=== PATIENT | male | born 1960 | race Caucasian/White ===

== ENCOUNTER → 2022-09-21 10:53 | Outpatient (CLI) | payer OTHER, SELFPAY ==
--- NOTE | 2022-09-21 10:55 | DI.CT.S_ITS ---
PROCEDURE: CT ANKLE RIGHT WITHOUT CON INDICATIONS: Fall from ladder, fracture in tibia, ankle TECHNIQUE: Noncontrast 1-1.5 mm axial sections acquired from above the tibiotalar joint to the bottom of the calcaneus, with coronal and sagittal reformats. COMPARISON: [facility] ([place]), CR, XR FOOT RT MIN 3V, 09/15/2022, 14:47. [facility]), CR, XR ANKLE RT MIN 3V, 09/15/2022, 14:59. [facility], RG, XR FOOT COMPLETE, 12/02/2016, 13:33. FINDINGS: Image quality: Excellent. Bones: There is a comminuted mildly displaced longitudinal fracture involving the anterolateral aspect of the distal tibia extending to the tibiotalar joint and distal tibiofibular syndesmosis. There is up to 8 mm anterolateral displacement of the anterior fracture fragment measures on axial images. There is minimal step-off at the distal tibial articular surface measuring up to 1 mm. Tibiotalar alignment appears normal. No osteochondral lesion is seen in the talar dome. No acute fibular fracture is identified. There is chronic dorsal subluxation of the navicular relative to the talar head with chronic osseous remodeling. Mild fragmentation of the lateral portion of the navicular is noted. Surrounding degenerative changes are seen in the talar head and the lateral cuneiform. A small ossification is seen between the 1st and 2nd metatarsal bases that may be the sequela of a remote prior injury versus secondary to congenital variation. Soft tissues: Soft tissue edema is seen surrounding the ankle. The articular cartilages, ligaments, and tendons are not well evaluated with standard CT. However, the Achilles tendon appears mildly thickened, consistent with tendinosis. No definite tendon entrapment is seen. IMPRESSION: 1. Comminuted, mildly displaced, intra-articular fracture of the distal tibia as described in the body of the report. Mortise joint alignment is maintained. 2. 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 Approved by: Favian Leslie M.D. on 09/21/2022 at 19:59
--- NOTE | 2022-09-21 10:55 | DI.CT.S_ITS ---
PROCEDURE: CT FOOT RIGHT WITHOUT CON INDICATIONS: Fall from ladder, fracture in tibia, ankle TECHNIQUE: Noncontrast 1-1.5 mm axial sections acquired from above the tibiotalar joint to the bottom of the calcaneus, with coronal and sagittal reformats. COMPARISON: None. FINDINGS: Image quality: Excellent. Bones: Comminuted mildly displaced longitudinal fracture of the anterolateral distal tibia is seen without significant step-off at the distal tibial articular surface. There is chronic dorsal subluxation of the navicular relative to the talar head with chronic osseous remodeling. Mild fragmentation of the inferior and lateral navicular is noted. Surrounding degenerative changes are present. A small ossification is seen between the 1st and 2nd metatarsal bases that may be the sequela of remote prior trauma or less likely congenital variation. No widening of the 1st intermetatarsal distance is seen. No acute osseous fracture is seen in the forefoot. Scattered degenerative changes are seen in the interphalangeal joints of the toes. Soft tissues: Diffuse soft tissue edema is seen surrounding the ankle. The articular cartilages, ligaments, and tendons are not well evaluated with standard CT. The musculature of the foot is normal in bulk. Small amount of fluid is seen surrounding the flexor digitorum longus and flexor hallucis longus tendons at the master knot of Macario. IMPRESSION: 1. Comminuted mildly displaced intra-articular fracture of the distal tibia. 2. 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 3. Small ossification between the 1st and 2nd metatarsal bases is most likely the sequela of a remote prior injury versus congenital variation. No widening of the 1st intermetatarsal space is seen. 4. No acute forefoot fracture. Approved by: Favian Leslie M.D. on 09/21/2022 at 20:03
== END ==
PROVIDERS: PCP Physician Assistant; Referring Provider Physician Assistant; Visit Provider Physician Assistant
DX: S82.391A Other fracture of lower end of right tibia, initial encounter for closed fracture (principal); M24.474 Recurrent dislocation, right foot; W11.XXXA Fall on and from ladder, initial encounter
CPT/HCPCS: 73700

== ENCOUNTER → 2024-11-02 10:40 | Outpatient (CLI) | payer OTHER, SELFPAY ==
--- NOTE | 2024-11-02 10:50 | DI.US.S_ITS ---
PROCEDURE: US PERIPH VENOUS LOW EXTREM RT INDICATIONS: episodic hip and knee pain and warmth TECHNIQUE: Real-time imaging, as well as color and pulse Doppler interrogation, were performed of the lower extremity deep veins from the inguinal ligament to the popliteal fossa, with documentation of the visualized calf veins. COMPARISON: None. FINDINGS: The common femoral, femoral, popliteal, and the visualized calf veins are normally compressible, and free of intraluminal thrombus. Color and pulse Doppler demonstrate normal phasic intraluminal flow. There is normal augmentation response to distal compression maneuver. IMPRESSION: No findings of lower extremity deep venous thrombosis. Dictated by: Olivier Pool M.D. on 11/02/2024 at 16:13 Approved by: Olivier Pool M.D. on 11/02/2024 at 16:13
[2024-11-02 11:15] LABS: Hematocrit 42.4 % (41-53); Hemoglobin 14.3 g/dL (13.5-17.5); Mean Corpuscular HGB Conc 33.7 % (30-36); Mean Corpuscular Hemoglobin 32.3 PG (26-34); Mean Corpuscular Volume 95.9 fL (80-100); Platelet Count 179 X10^3/uL (150-400); Red Blood Cell Count 4.43 X10^6/uL (4.5-5.9); Red Cell Distribution Width 13.8 % (11.6-14.8); White Blood Cell Count 8.5 X10^3/uL (4.5-11.0)
[2024-11-02 11:24] LABS: Alanine Aminotransferase 27 IU/L (<50); Albumin 4.2 g/dL (3.5-5.0); Albumin Globulin Ratio 1.4 (1.0-2.8); Alkaline Phosphatase 73 U/L (38-126); Aspartate Aminotransferase 37 IU/L (17-59); BUN Creatinine Ratio 17.9 (6-22); Bilirubin Total 0.8 mg/dL (0.2-1.3); Blood Urea Nitrogen 14 mg/dL (9-20); Calcium 9.7 mg/dL (8.4-10.2); Carbon Dioxide 28 mmol/L (22-32); Chloride 101 mmol/L (98-107); Cholesterol 191 mg/dL (140-199); Estimated Glomerular Filt Rate > 60 mL/min (>60); Globulin 3.1 g/dL (1.7-4.1); Glucose 93 mg/dL (80-110); HDL Cholesterol 79 mg/dL (40-60); HEMOLYSIS < 15 (0-50); LDL Cholesterol Calculated 96 mg/dL (<100); Potassium 4.2 mmol/L (3.4-5.1); Sodium 136 mmol/L (137-145); Total Protein 7.3 g/dL (6.3-8.2); Triglycerides 78 mg/dL (35-150); Uric Acid 4.9 mg/dL (3.5-8.5)
[2024-11-02 11:54] LABS: TSH w/ Reflex to FT4 2.94 uIU/mL (0.47-4.68)
[2024-11-02 12:14] LABS: Erythrocyte Sedimentation Rate 5 MM/HR (0-15)
== END ==
PROVIDERS: PCP Physician Assistant Medical; Referring Provider Physician Assistant Medical; Visit Provider Physician Assistant Medical
DX: M25.561 Pain in right knee (principal)
CPT/HCPCS: 36415; 80053; 80061; 84443; 84550; 85027; 85651; 93971